=== PATIENT | male | born 1975 | race Caucasian/White ===

== ENCOUNTER 2019-02-08 19:31 | Emergency (ER) | payer MEDICAID ==
[~2019-02-08] VITALS: Ht 177.8 cm; Wt 86.2 kg
--- NOTE | 2019-02-08 19:56 | NUR ---
AT BEDSIDE FOR EVAL
--- NOTE | 2019-02-08 20:02 | NUR ---
TECH AT BEDSIDE FOR EKG
[2019-02-08 20:12] LABS: BASOPHILS % (AUTO) 0.3 % (0.0-2.0); EOSINOPHILS % (AUTO) 0.3 % (0.0-6.0); HEMATOCRIT 54 % (39-51); HEMOGLOBIN 18.2 g/dL (13.5-17.5); LYMPHOCYTES # (AUTO) 1.2 /CMM (0.8-4.8); LYMPHOCYTES % (AUTO) 10.5 % (20.0-44.0); MEAN CORPUSCULAR HGB CONC 34 g/dl (31.0-36.0); MEAN CORPUSCULAR VOLUME 88 fL (80-96); MONOCYTES # (AUTO) 1.1 /CMM (0.1-1.30); MONOCYTES % (AUTO) 9.9 % (2.0-12.0); NEUTROPHILS # (AUTO) 8.8 /CMM (1.8-8.9); PLATELET COUNT (AUTO) 254 /CMM (150-450); RED BLOOD CELL COUNT(AUTO) 6.09 MIL/uL (4.5-6.0); WHITE BLOOD COUNT (AUTO) 11.1 K/uL (4.3-11.0)
--- NOTE | 2019-02-08 20:12 | NUR ---
BLOOD DRAWN AND GIVEN TO LAB
--- NOTE | 2019-02-08 20:16 | NUR ---
PT TAKEN TO RADIOLOGY VIA [facility]
[2019-02-08 20:22] LABS: CALCIUM, SERUM 9.6 mg/dL (8.5-10.1); CARBON DIOXIDE 26 mmol/L (21-32); CHLORIDE 105 mmol/L (98-107); CREATININE 1.4 mg/dL (0.6-1.3); GLUCOSE 137 mg/dL (74-106); POTASSIUM 3.6 mmol/L (3.5-5.1); SODIUM SERUM 143 mmol/L (136-145); UREA NITROGEN, BLOOD 23 mg/dL (7-18)
--- NOTE | 2019-02-08 20:23 | NUR ---
PT RETURNED FROM CT. PT TOLERATED WELL.
[2019-02-08 20:26] LABS: ALANINE AMINOTRANSFERASE 69 U/L (12-78); ALBUMIN 4.6 g/dL (3.4-5.0); ALKALINE PHOSPHATASE 90 U/L (46-116); ASPARTATE AMINOTRANSFERASE 32 U/L (15-37); BILIRUBIN,DIRECT 0.2 mg/dL (0.0-0.2); BILIRUBIN,TOTAL 0.8 mg/dL (0.2-1.0); TOTAL PROTEIN, SERUM 8.6 g/dL (6.4-8.2)
[2019-02-08 20:30] LABS: ALCOHOL, BLOOD < 3 mg/dL (0-0)
[2019-02-08] MEDS ORDERED: NICARDIPINE IN DEXTROSE,ISO-OS 200 ML IV ONE ×2 (20:49→22:53)
--- NOTE | 2019-02-08 20:55 | NUR ---
PER [facility]ICER KULWINDER PT ROOM PENDING, FAXED CLINICALS AND FACESHEET TO [phone]. AWAITING CALL BACK WITH ROOM ASSIGNMENT AND RN NUMBER FOR REPORT.
--- NOTE | 2019-02-08 20:58 | NUR ---
NICARDIPINE DRIP STARTED AT 5MG/HR PER PROTOCOL.
[2019-02-08] MEDS ORDERED: NICARDIPINE HCL 20 MG in IV D5W 192 ML IV PRN (21:00)
--- NOTE | 2019-02-08 21:00 | NUR ---
[facility] WILL CALL PENDING [facility] ROOM ASSIGNMENT TRIP #[id number]
[2019-02-08 21:10] LABS: MAGNESIUM 2.5 mg/dL (1.8-2.4)
--- NOTE | 2019-02-08 21:19 | NUR ---
BP 169/121. NICARDIPINE TITRATED FROM 5.0MG/HR TO 7.5MG/HR.
--- NOTE | 2019-02-08 21:31 | NUR ---
PER [facility] MAINTENANCE TECHNICIAN AT [facility], WILL CALL BACK REGARDING BED FOR PT ASSIGNMENT IN 20 MINUTES
[2019-02-08 21:32] LABS: THYROID STIMULATING HORMONE 3.276 uIU/mL (0.358-3.74)
--- NOTE | 2019-02-08 22:08 | NUR ---
TRANSFER INFO: PT GOING TO [facility] DIRECT ADMIT TO ROOM 45-1, ACCEPTED BY DR ALEJANDRA RN FOR REPORT [phone] EXT [phone].....TREY CHANDLER WITH [facility] ALVARADO [facility] ETA [phone] Addendum: 02/08/19 at 2213 by MICHAELA ACCEPTED BY DR MELENDEZ
[2019-02-08 22:15] VITALS: BP 154/96
--- NOTE | 2019-02-08 22:15 | NUR ---
BP 154/96. NICARDIPINE TITRATED FROM 7.5MG/HR TO 10MG/HR PER MD ORDER.
--- NOTE | 2019-02-08 22:27 | NUR ---
REPORT GIVEN TO CHRISTIANO BAILEY AT [facility]
--- NOTE | 2019-02-08 23:00 | NUR ---
PT TRANSFERRED TO [facility] VIA [facility] PROTOCOL
== END 2019-02-09 01:56 | disposition short-term general hospital (02) ==
LOC: ER 19:39
DX: I61.5 Nontraumatic intracerebral hemorrhage, intraventricular (principal); G93.9 Disorder of brain, unspecified; G93.2 Benign intracranial hypertension; R51 Headache; F10.10 Alcohol abuse, uncomplicated; R41.0 Disorientation, unspecified; Y90.0 Blood alcohol level of less than 20 mg/100 ml
CPT/HCPCS: 36415; 70450-TC; 71045-TC; 80048-TC; 80076-TC; 82140-TC; 83605-TC; 83735-TC; 84100-TC; 84443-TC; 84484-TC; 85025-TC; 85730-TC; G0480

== ENCOUNTER 2019-02-26 12:45 | Emergency (ER) | payer MEDICAID ==
[~2019-02-26] VITALS: Ht 177.8 cm; Wt 90.7 kg
--- NOTE | 2019-02-26 13:07 | NUR ---
"NAUSEA X 3 DAYS, VOMITTING X TODAY, PT HAD RECENT BRAIN SX" PT AAOX4, -SOB, NAD NOTED, VSS ,PENDING MD MCGILL
[2019-02-26] MEDS ORDERED: IV NS 0.9% 500 ML BAG IV ONE (13:30)
[2019-02-26] MEDS ORDERED: ONDANSETRON HCL/PF 4 MG/2 ML VIAL IVP ONE (13:30)
[2019-02-26] MEDS ORDERED: ONDANSETRON HCL/PF 4 MG/2 ML VIAL ONE (13:30)
[2019-02-26 13:37] LABS: BASOPHILS # (AUTO) 0.1 /CMM (0.0-0.2); BASOPHILS % (AUTO) 0.8 % (0.0-2.0); HEMATOCRIT 46 % (39-51); HEMOGLOBIN 15.7 g/dL (13.5-17.5); LYMPHOCYTES # (AUTO) 1.1 /CMM (0.8-4.8); MEAN CORPUSCULAR HGB CONC 34 g/dl (31.0-36.0); MEAN CORPUSCULAR VOLUME 88 fL (80-96); MONOCYTES # (AUTO) 0.8 /CMM (0.1-1.30); MONOCYTES % (AUTO) 10.5 % (2.0-12.0); NEUTROPHILS # (AUTO) 5.6 /CMM (1.8-8.9); NEUTROPHILS % (AUTO) 72.7 % (43.0-81.0); PLATELET COUNT (AUTO) 338 /CMM (150-450); RED BLOOD CELL COUNT(AUTO) 5.26 MIL/uL (4.5-6.0); WHITE BLOOD COUNT (AUTO) 7.7 K/uL (4.3-11.0)
[2019-02-26 13:48] LABS: CALCIUM, SERUM 8.8 mg/dL (8.5-10.1); CREATININE 0.7 mg/dL (0.6-1.3); POTASSIUM 4.1 mmol/L (3.5-5.1)
[2019-02-26 13:54] LABS: ALBUMIN 3.8 g/dL (3.4-5.0); BILIRUBIN,DIRECT 0.1 mg/dL (0.0-0.2); BILIRUBIN,TOTAL 0.5 mg/dL (0.2-1.0); TOTAL PROTEIN, SERUM 7.6 g/dL (6.4-8.2)
[2019-02-26] MEDS ORDERED: ACETAMINOPHEN 325 MG TABLET PO ONE (14:00)
[2019-02-26] MEDS ORDERED: ACETAMINOPHEN ES 500 MG TABLET ONE (14:25)
[2019-02-26 15:00] VITALS: BP 139/80
--- NOTE | 2019-02-26 15:36 | NUR ---
Patient discharged to home in stable condition. Written and verbal after care instructions given. Patient verbalizes understanding of instruction.
== END 2019-02-26 15:38 | disposition home or self-care (01) ==
LOC: ER 12:47
DX: R51 Headache (principal); R11.2 Nausea with vomiting, unspecified; I10 Essential (primary) hypertension; Z98.890 Other specified postprocedural states
CPT/HCPCS: 36415; 70450; 80048; 80076; 85025; 85730; 96361; 96374; 99284; J2405; J7040

== ENCOUNTER 2022-02-07 19:12 | Emergency (ER) | payer MEDICAID ==
[~2022-02-07] VITALS: Ht 177.8 cm; Wt 73.5 kg
[2022-02-07] MEDS ORDERED: hydrALAZINE HCL 10 MG TABLET PO ONE (21:00)
[2022-02-07] MEDS ORDERED: LET SOLN TOPICAL 8 ML UDC TP ONE ×2 (21:00→21:06)
--- NOTE | 2022-02-07 21:00 | NUR ---
APRESOLINE NOT GIVEN. INFORMED DR MONTALVO AND MANOHAR SEVERINO THAT OUR STOCK IS ONLY APRESOLINE 50MG/TAB. DR MONTALVO AWARE ABOUT LATEST BP 155/117mmHg. SHE SAID OK NOT TO GIVE
[2022-02-07] MEDS ORDERED: FLUORESCEIN SODIUM OPHTH 1 EA STRIP ONE (21:41)
[2022-02-07] MEDS ORDERED: FLUORESCEIN SODIUM OPHTH 1 EA STRIP OP ONE (22:00)
[2022-02-07] MEDS ORDERED: TETRACAINE HCL 0.5% OPHTALMIC 15 ML BOTTLE OP ONE (22:00)
--- NOTE | 2022-02-07 22:09 | NUR ---
[facility] TRANSFER CALLED FOR HIGHER LEVEL OF CARE. FACESHEET AND CLINICALS FAXED TO [phone]
--- NOTE | 2022-02-07 22:18 | NUR ---
[facility] CALLED FOR HIGHER LEVEL OF CARE TRANSFER REQUEST. SPOKE WITH MARKIE. FACESHEET AND CLINICALS FAXED TO [phone]
[2022-02-07 22:25] LABS: BASOPHILS % (AUTO) 0.5 % (0.0-2.0); EOSINOPHILS % (AUTO) 0.7 % (0.0-6.0); HEMATOCRIT 50 % (39-51); HEMOGLOBIN 16.5 g/dL (13.5-17.5); LYMPHOCYTES # (AUTO) 1.8 K/uL (0.8-4.8); LYMPHOCYTES % (AUTO) 20.4 % (20.0-44.0); MEAN CORPUSCULAR HGB CONC 33 g/dl (31.0-36.0); MEAN CORPUSCULAR VOLUME 87 fL (80-96); MONOCYTES # (AUTO) 0.7 K/uL (0.1-1.30); MONOCYTES % (AUTO) 7.3 % (2.0-12.0); NEUTROPHILS # (AUTO) 6.4 K/uL (1.8-8.9); NEUTROPHILS % (AUTO) 71.1 % (43.0-81.0); PLATELET COUNT (AUTO) 253 K/uL (150-450); RED BLOOD CELL COUNT(AUTO) 5.73 MIL/uL (4.5-6.0)
[2022-02-07 22:39] LABS: CALCIUM, SERUM 8.7 mg/dL (8.5-10.1); CREATININE 0.8 mg/dL (0.6-1.3); POTASSIUM 3.6 mmol/L (3.5-5.1)
--- NOTE | 2022-02-07 22:40 | NUR ---
COVID SWAB DONE AND SENT TO LAB
[2022-02-07 22:44] LABS: ALBUMIN 4.3 g/dL (3.4-5.0); BILIRUBIN,DIRECT 0.2 mg/dL (0.0-0.2); BILIRUBIN,TOTAL 0.8 mg/dL (0.2-1.0); TOTAL PROTEIN, SERUM 7.8 g/dL (6.4-8.2)
--- NOTE | 2022-02-07 23:11 | NUR ---
[facility] CALLED FOR BLS TO [facility] PER PAUL ETA- 2 HOURS
--- NOTE | 2022-02-07 23:14 | NUR ---
Sujatha Mccoy MD accepting Arrange for transport Send CT and paperwork.
[2022-02-07] MEDS ORDERED: hydrALAZINE HCL IV 20 MG VIAL ONE (23:27)
[2022-02-07] MEDS ORDERED: hydrALAZINE HCL IV 20 MG VIAL IV ONE ×2 (23:30)
[2022-02-07 23:35] VITALS: BP 195/107
--- NOTE | 2022-02-07 23:50 | NUR ---
Report given to Leonel ALVARADO for trudy
[2022-02-08] MEDS ORDERED: hydrALAZINE HCL IV 20 MG VIAL IV ONE
--- NOTE | 2022-02-08 00:12 | NUR ---
Report given to GERALDINE juarez pt transfered to [facility].
== END 2022-02-08 00:14 | disposition short-term general hospital (02) ==
LOC: ER 19:14
DX: S05.11XA Contusion of eyeball and orbital tissues, right eye, initial encounter (principal); W01.190A Fall on same level from slipping, tripping and stumbling with subsequent striking against furniture, initial encounter; Y92.89 Other specified places as the place of occurrence of the external cause; S01.111A Laceration without foreign body of right eyelid and periocular area, initial encounter; I16.0 Hypertensive urgency; H05.20 Unspecified exophthalmos; Z20.822 Contact with and (suspected) exposure to COVID-19; S70.11XA Contusion of right thigh, initial encounter
CPT/HCPCS: 99291; 96374; 70486; 87426; 12011; 85025; 80048; 80076; 36415; 85730; J0360; C9803